=== PATIENT | male | born 1990 | race Caucasian/White ===

== ENCOUNTER 2017-01-04 12:51 | Emergency (ER) | payer OTHER ==
[2017-01-04 12:54] VITALS: BP 151/92; PULSE 88; TEMP 98.5; BMI 24.8
--- NOTE | 2017-01-04 13:50 | PDOC ---
History of Present Illness - General Chief Complaint: Eye Problem Stated Complaint: CONJUCTIVITIS (REFERRED) Time Seen by Provider: 01/04/17 13:22 History Source: Patient Exam Limitations: No Limitations - History of Present Illness Initial Comments: 01/04/17 13:38 26 yr male with c/o bilateral red eyes, tearing , inflamed upper eyelids for one week. Pt seen at urgent care was placed on tobramycin and Augmentin for ? strep throat. Pt states he has nasal congestion and sneezing. no fever or sinus tenderness no vision changes. Timing/Duration: 1 week Severity: moderate Past History - Past Medical History Allergies/Adverse Reactions: Allergies Allergy/AdvReac Type Severity Reaction Status Date / Time No Known Allergies Allergy Verified 01/04/17 12:54 Home Medications: Ambulatory Orders Amox-Tr/K Cl [Augmentin - 875Mg Tablet] 1 tab PO BID 01/04/17 Ketotifen Fumarate [Allergy Eye Drops] 1 drp OU BID #1 bot 01/04/17 Tobramycin 0.3% Ophth Soln [Tobrex *Ophthalmic Solution*] 1 - 2 drop BID Other medical history: NONE - Psycho/Social/Smoking Cessation Hx Suicidal Ideation: No Smoking History: Current some day smoker Number of Cigarettes Smoked Daily: 4 Information on smoking cessation initiated: No Hx Alcohol Use: Yes (SOCIAL) Drug/Substance Use Hx: No Substance Use Type: None Review of Systems - Review of Systems Able to Perform ROS?: Yes Is the patient limited B[place]ian proficient: No Constitutional: No: Symptoms Reported HEENTM: Yes: See HPI Respiratory: Yes: Cough (dry) *Physical Exam - Vital Signs Last Vital Signs Temp Pulse Resp BP Pulse Ox 98.5 F 88 20 151/92 97 01/04/17 12:52 01/04/17 12:52 01/04/17 12:52 01/04/17 12:52 01/04/17 12:52 - Physical Exam General Appearance: Yes: Nourished, Appropriately Dressed HEENT: positive: EOMI, JACOB, Nasal Congestion, Other (bilateral conjunctiva erythema, injected stringy ventura discharge, mild edema to upper eyleids). negative: Pharyngeal Erythema Neck: positive: Supple. negative: Tender Respiratory/Chest: positive: Lungs Clear, Normal Breath Sounds Cardiovascular: positive: Regular Rhythm, Regular Rate Gastrointestinal/Abdominal: positive: Normal Bowel Sounds, Soft Musculoskeletal: positive: Normal Inspection Extremity: positive: Normal Capillary Refill, Normal Inspection, Normal Range of Motion Integumentary: positive: Normal Color, Dry, Warm Neurologic: positive: Fully Oriented, Alert, Normal Mood/Affect, Normal Response , Motor Strength /5 Medical Decision Making - Medical Decision Making 01/04/17 13:52 cc: red eyes, watery itchy nasal congestion using tobramycin drops with no relief will prescribe xatador drops for allergic conjuncivtivits refer to ENT and optho *DC/Admit/Observation/Transfer Diagnosis at time of Disposition: Allergic conjunctivitis and rhinitis Qualifiers: Laterality: bilateral Qualified Code(s): H10.13 - Acute atopic conjunctivitis, bilateral; J30.9 - Allergic rhinitis, unspecified - Discharge Dispostion Disposition: HOME Condition at time of disposition: Good - Prescriptions Prescriptions: Ketotifen Fumarate [Allergy Eye Drops] 1 drp OU BID #1 bot - Referrals Referrals: Brian Jean Baptiste MD [Primary Care Provider] - Fortino Clarke MD [Staff Physician] - Johann Craven MD [Staff Physician] - - Patient Instructions Additional Instructions: take a non drowsy Claritin or Zyrtec daily in the morning apply cool to cold compresses over the eyes every 2hrs for 15 minutes use the drops as prescribed , STOP using the tobramycin drops follow with the eye doctor and the fixed wing pilot listed below if no improvement in 1 -2 days
== END 2017-01-04 13:59 | disposition home or self-care (01) ==
LOC: JERFT 12:51
DX: H10.13 Acute atopic conjunctivitis, bilateral (principal); J30.9 Allergic rhinitis, unspecified; F17.210 Nicotine dependence, cigarettes, uncomplicated
CPT/HCPCS: 99281-25